=== PATIENT | female | born 1990 | race Caucasian/White ===

== ENCOUNTER 2017-03-03 18:07 | Emergency (ER) | payer OTHER ==
[~2017-03-03] VITALS: Ht 162.6 cm; Wt 99.3 kg
[2017-03-03 18:25] VITALS: BP 138/83
--- NOTE | 2017-03-03 18:56 | NUR ---
Patient to bed 4 a this time.
--- NOTE | 2017-03-03 19:09 | NUR ---
Dr. Landers evaluating patient at bedside.
--- NOTE | 2017-03-03 19:13 | NUR ---
Pt report given to JAIMEE BOWEN. Transfer of care at this time.
--- NOTE | 2017-03-03 19:13 | NUR ---
26/F PRESENT TO ER C/O RT ARM PAIN x 7 DAYS AND BACK PAIN 2 MONTHS. PAIN 10/10 ACHING NON-RADIAITING. PT DENIES INJURY OR TRAUMA. AAOx4, PERRLA, BREATHING EVEN AND UNLABORED. ERMD NOTIFIED OF PATIENT STATUS.
[2017-03-03] MEDS ORDERED: KETOROLAC 30 MG/ML VIAL IM ONE (19:15)
--- NOTE | 2017-03-03 19:25 | NUR ---
PT TAKEN FOR X-RAY.
--- NOTE | 2017-03-03 19:40 | NUR ---
pt return from xray
[2017-03-03 20:13] VITALS: BP 136/89
--- NOTE | 2017-03-03 20:13 | NUR ---
Patient discharged with v/s stable. Written and verbal after care instructions given and explained. Patient alert, oriented and verbalized understanding of instructions. Ambulatory with steady gait. All questions addressed prior to discharge. ID band removed. Patient advised to follow up with PMD IN 2-3 DAYS. Rx of MACROBID, NAPROSYN AND TYLENOL WITH CODEINE given. Patient educated on indication of medication including possible reaction and side effects. Opportunity to ask questions provided and answered.
== END 2017-03-03 20:13 | disposition home or self-care (01) ==
LOC: MED 18:07
DX: M77.9 Enthesopathy, unspecified (principal); N39.0 Urinary tract infection, site not specified; Z88.8 Allergy status to other drugs, medicaments and biological substances
CPT/HCPCS: 29125; 72100; 73110; 81001; 81025; 87086; 96372; 99285; J1885

== ENCOUNTER 2018-05-11 17:04 | Emergency (ER) | payer OTHER ==
[~2018-05-11] VITALS: Ht 160 cm; Wt 104.8 kg
[2018-05-11 17:18] VITALS: BP 128/75
[2018-05-11 18:08] VITALS: BP 136/87
== END 2018-05-11 18:08 | disposition home or self-care (01) ==
LOC: MED 17:04
DX: B34.9 Viral infection, unspecified (principal); Z88.8 Allergy status to other drugs, medicaments and biological substances
CPT/HCPCS: 99283

== ENCOUNTER 2019-11-24 12:42 | Emergency (ER) | payer OTHER ==
[~2019-11-24] VITALS: Ht 160 cm; Wt 107.5 kg
[2019-11-24 12:56] VITALS: BP 143/75
--- NOTE | 2019-11-24 12:57 | NUR ---
TRIAGE COMPLETE. VSS. RETURNED TO LOBBY TO WAIT FOR BED IN ED.
--- NOTE | 2019-11-24 14:13 | NUR ---
PT AMBULATED TO BED 04
--- NOTE | 2019-11-24 14:20 | NUR ---
PT C/O SORE THROAT, FEVER, CHILLS SINCE YESTERDAY. DENIES N/V, COUGH, CP, OR SOB AT THIS TIME. HX OF STREP 1.5 MONTH AGO. WHITE SPOTS NOTICED ON PT'S THROAT BILATERAL. PATIENT STATES PAIN OF 10/10 AT THIS TIME; VSS; PATIENT POSITIONED FOR COMFORT; HOB ELEVATED; BEDRAILS UP X1; BED DOWN. ER MD MADE AWARE OF PT STATUS.
[2019-11-24] MEDS ORDERED: ACETAMINOPHEN EXTRA STRENGTH 500 MG TAB PO ONE (14:45)
[2019-11-24 17:39] VITALS: BP 124/65
== END 2019-11-24 17:39 | disposition home or self-care (01) ==
LOC: MED 12:42
DX: B34.9 Viral infection, unspecified (principal); J02.9 Acute pharyngitis, unspecified; Z88.1 Allergy status to other antibiotic agents
CPT/HCPCS: 87081; 87804; 99283

== ENCOUNTER 2021-07-26 15:42 | Emergency (ER) | payer OTHER ==
[~2021-07-26] VITALS: Ht 160 cm; Wt 114.3 kg
[2021-07-26 16:05] VITALS: BP 144/76
--- NOTE | 2021-07-26 16:13 | NUR ---
PT TO WAIT IN LOBBY
--- NOTE | 2021-07-26 17:55 | NUR ---
PT SEEN AND D/C BY MARCIAL SUTTON. NO NURSING INTERVENTIONS RENDERED
--- NOTE | 2021-07-26 17:56 | NUR ---
Patient discharged with v/s stable. Written and verbal after care instructions ABOUT MUSCLE STRAIN given and explained. Patient verbalized understanding. Ambulatory with steady gait. All questions addressed prior to discharge. Advised to follow up with PMD.
== END 2021-07-26 17:56 | disposition home or self-care (01) ==
LOC: MED 15:42
DX: S29.011A Strain of muscle and tendon of front wall of thorax, initial encounter (principal); X50.0XXA Overexertion from strenuous movement or load, initial encounter; Y93.89 Activity, other specified; Y92.89 Other specified places as the place of occurrence of the external cause; Y99.8 Other external cause status
CPT/HCPCS: 71100; 99283